=== PATIENT | female | born 1990 | race Two or more races ===

== ENCOUNTER → 2018-07-07 | Outpatient (CLI) | payer OTHER, SELFPAY ==
--- NOTE | 2018-07-07 16:03 | DIREP ---
PROCEDURE:US OB 1ST TRI - TV COMPARISON:None. INDICATIONS:9 WKS IUP, FIRST TRIMESTER TECHNIQUE:Transabdominal and endovaginal pelvic ultrasound images were obtained. Endovaginal images were obtained to optimally evaluate the and maternal adnexal structures. FINDINGS: GESTATIONAL SAC:Present and normal appearing. PLACENTA:No subchorionic hemorrhage. AMNIOTIC FLUID:Volume within normal limits. POLE:Present and normal appearing. CRL-4.7 cm YOLK SAC:Present. CARDIAC ACTIVITY:175 bpm. UTERUS:Normal. OVARIES:Normal. CUL-DE-SAC:No free fluid. CLINICAL AGE:11 weeks 0 days, LIANNE 01/26/2019 US AGE:11 weeks 3 days, LIANNE 01/23/2019 OTHER:Negative. CONCLUSION: 1. Single early viable IUP 11 weeks 3 days and LIANNE 01/23/2019, by CRL. 2. No abnormality seen. 3. Concordant LMP and ultrasound gestational ages. Dictated by: ULISES Physician on 07/07/2018 at 03:32 PM
== END | disposition home or self-care (01) ==
LOC: RAD 13:53
PROVIDERS: ATTEND Obstetrics & Gynecology
DX: Z34.01 Encounter for supervision of normal first pregnancy, first trimester (principal); Z3A.11 11 weeks gestation of pregnancy
CPT/HCPCS: 76801; 76817